=== PATIENT | female | born 1970 | race Caucasian/White ===

== ENCOUNTER → 2016-09-11 | Outpatient (CLI) | payer BC ==
[2016-09-11 17:55] LABS: BASO % 0.3 %; BASO ABS # 0.02 K/uL (0-0.2); COMPLETE YES; EOS % 0.9 %; HEMATOCRIT 36.3 % (37-47); IG% 0.1 %; LYMPH % 34.5 %; LYMPH ABS # 2.64 K/uL (1.2-3.4); MEAN CELL VOLUME 93.6 fL (80-100); MEAN CORPUSCULAR HEMOGLOBIN 31.7 pg (25-34); MEAN CORPUSCULAR HGB CONC 33.9 g/dl (32-36); MEAN PLATELET VOLUME 11.4 fL (7.4-10.4); MONO % 9.1 %; NEUT % 55.1 %; PLATELET COUNT 283 K/uL (130-400); RED BLOOD COUNT 3.88 M/uL (4.2-5.4); WHITE BLOOD COUNT 7.66 K/uL (4.8-10.8)
[2016-09-11 18:06] LABS: BLOOD UREA NITROGEN 7 mg/dl (7-18); BUN/CREATININE RATIO 10.1 (10-20); CALCIUM 8.7 mg/dl (8.5-10.1); CARBON DIOXIDE 26 mmol/L (21-32); CHLORIDE 107 mmol/L (98-107); CREATININE 0.69 mg/dl (0.60-1.20); GLUCOSE 90 mg/dl (70-99); MAGNESIUM 2.4 mg/dl (1.8-2.4); POTASSIUM 3.9 mmol/L (3.5-5.1); SODIUM 140 mmol/L (136-145)
[2016-09-11 18:17] LABS: PHOSPHORUS 2.6 mg/dl (2.5-4.9)
== END | disposition home or self-care (01) ==
LOC: C.LABMFLN 14:09
PROVIDERS: ATTEND Family Medicine
DX: R00.2 Palpitations (principal)

== ENCOUNTER → 2017-01-06 | Outpatient (CLI) | payer BC ==
[2017-01-06 13:39] LABS: CHOLESTEROL/HDL RATIO 5.3
== END | disposition home or self-care (01) ==
LOC: C.LABMFLN 07:26
PROVIDERS: ATTEND Family Medicine
DX: Z13.1 Encounter for screening for diabetes mellitus (principal); Z13.220 Encounter for screening for lipoid disorders

== ENCOUNTER → 2017-04-08 | Outpatient (CLI) | payer BC | END | disposition home or self-care (01) | LOC: C.LABSPEC 13:28 | PROVIDERS: ATTEND Family Medicine | DX: N39.0 Urinary tract infection, site not specified (principal) ==